=== PATIENT | male | born 1955 | race Two or more races ===

== ENCOUNTER 2023-03-18 08:05 | Emergency (ER) | payer OTHER ==
[~2023-03-18] VITALS: Ht 177.8 cm; Wt 100.9 kg
[2023-03-18 09:04] VITALS: BP 154/95; PULSE 70; RESP 16; TEMP 97.9; O2SAT 98
[2023-03-18] MEDS ORDERED: MELO-335 PO (10:32)
== END 2023-03-18 10:38 | disposition home or self-care (01) ==
LOC: ER 08:05
DX: M23.92 Unspecified internal derangement of left knee (principal); F17.210 Nicotine dependence, cigarettes, uncomplicated
CPT/HCPCS: 73562

== ENCOUNTER → 2023-03-25 | Outpatient (CLI) | payer OTHER ==
[~2023-03-25] MED LIST: MELO-335 PO
== END | disposition home or self-care (01) ==
LOC: LAB 10:22
PROVIDERS: ATTEND Family Medicine
DX: Z12.11 Encounter for screening for malignant neoplasm of colon (principal); Z12.5 Encounter for screening for malignant neoplasm of prostate; Z00.01 Encounter for general adult medical examination with abnormal findings; E55.9 Vitamin D deficiency, unspecified; R73.01 Impaired fasting glucose; R79.89 Other specified abnormal findings of blood chemistry; E78.2 Mixed hyperlipidemia; R73.03 Prediabetes; E78.5 Hyperlipidemia, unspecified; I10 Essential (primary) hypertension
CPT/HCPCS: 82270

== ENCOUNTER → 2023-12-12 | Outpatient (CLI) | payer OTHER ==
[~2023-12-12] MED LIST changes: -MELO-335 PO; +MELO15TA29 PO
[2023-12-12 07:38] LABS: Urine Bacteria None Seen /hpf (None Seen)
[2023-12-12 07:41] LABS: Basophils # (auto) 0.1 10 ^3/uL (0-0.2); Basophils % (auto) 1.1 % (0.0-2.0); Eosinophils # (auto) 0.3 10 ^3/uL (0-0.8); Eosinophils % (auto) 4.3 % (0.0-7.0); Hematocrit 46.5 % (41.0-53.0); Hemoglobin 15.2 g/dL (13.5-17.5); Lymphocytes # (auto) 2.3 10 ^3/uL (0.4-5.4); Lymphocytes % (auto) 33.5 % (10.0-50.0); Mean Corpuscular Hemoglobin 28.9 pg (28.0-32.0); Mean Corpuscular Hgb Conc. 32.8 g/dL (32.0-36.0); Mean Corpuscular Volume 88.2 fL (80.0-100.0); Monocytes # (auto) 0.6 10 ^3/uL (0-1.3); Monocytes % (auto) 8.6 % (0.0-12.0); Neutrophils # (auto) 3.6 10 ^3/uL (1.6-8.6); Neutrophils % (auto) 52.5 % (37.0-80.0); Red Blood Cells 5.28 10^6/uL (4.5-5.90); Red Cell Distribution Width 14.6 % (11.8-14.3); White Blood Cell 6.8 10^3/uL (4.4-10.8)
[2023-12-12 08:06] LABS: Urine Blood 1+ /uL (Negative); Urine Clarity Clear (Clear); Urine Color Light-Yellow (Yellow); Urine Mucus FEW (None Seen); Urine Protein, UAD Negative (Negative); Urine Specific Gravity 1.015 (1.001-1.035); Urine Urobilinogen Normal (Negative); Urine WBC 1 /hpf (0 - 3); Urine pH 5.5 (5.0-9.0)
[2023-12-12 08:16] LABS: Alanine Aminotransferase 47 U/L (7-40); Albumin 4.5 g/dL (3.2-4.8); Alkaline Phosphatase 70 U/L (46-116); Anion Gap 3 (5-15); Aspartate Aminotransferase 27 U/L (13-40); BUN/Creatinine Ratio 8.6 (10.0-20.0); Blood Urea Nitrogen 8 mg/dL (9-23); Calcium 9.6 mg/dL (8.5-10.1); Carbon Dioxide 30 mmol/L (20-30); Chloride 107 mmol/L (98-107); Cholesterol 145 mg/dL (< 200); Glucose 107 mg/dL (74-106); HDL Cholesterol 41 mg/dL (40-59); LDL Cholesterol 89 mg/dL (< 100); Potassium 4.9 mmol/L (3.5-5.1); Sodium 140 mmol/L (136-145); Triglycerides 138 mg/dL (< 150)
[2023-12-12 08:17] LABS: Bilirubin, Total 0.9 mg/dL (0.2-1.0)
== END | disposition home or self-care (01) ==
LOC: LAB 07:28
PROVIDERS: ATTEND Family Medicine
DX: R31.29 Other microscopic hematuria (principal); I10 Essential (primary) hypertension; Z79.899 Other long term (current) drug therapy
CPT/HCPCS: 36415; 80053; 80061; 81001; 82043; 83036; 84153; 84443; 85025

== ENCOUNTER 2023-12-21 08:04 | Emergency (ER) | payer OTHER ==
[~2023-12-21] VITALS: Ht 177.8 cm; Wt 100.0 kg
[2023-12-21 08:28] VITALS: BP 148/98; PULSE 98; RESP 18; TEMP 98.7; O2SAT 98
[2023-12-21] MEDS: HYDROcodone-ACET 10/325MG TAB PO ONE (08:54)
[2023-12-21] MEDS ORDERED: TRAM-626 PO (09:13)
[2023-12-21] MEDS ORDERED: PRED20TA2 PO (09:13)
== END 2023-12-21 09:21 | disposition home or self-care (01) ==
LOC: ER 08:04
DX: M51.16 Intervertebral disc disorders with radiculopathy, lumbar region (principal); G89.29 Other chronic pain; M54.59 Other low back pain; F17.210 Nicotine dependence, cigarettes, uncomplicated; Z79.52 Long term (current) use of systemic steroids; Z79.899 Other long term (current) drug therapy
CPT/HCPCS: 72100

== ENCOUNTER 2023-12-29 08:35 | Emergency (ER) | payer OTHER, MEDICAID ==
[~2023-12-29] VITALS: Ht 177.8 cm; Wt 77.2 kg
[~2023-12-29 08:35] MED LIST changes: +PRED20TA2 PO; +TRAM-626 PO
[2023-12-29] MEDS: KETOROLAC TROMETH 30 MG/ML 1ML VIAL IV ONE (09:16)
[2023-12-29] MEDS: LOSARTAN POTASSIUM 25 MG TAB PO ONE (09:16)
[2023-12-29] MEDS: methylPREDNISolone SOD SUCC 125 MG/2 ML VL IV ONE (09:16)
[2023-12-29 09:56] VITALS: PULSE 99; RESP 17; O2SAT 96
[2023-12-29] MEDS: MORPHINE SULFATE 4 MG/ML SYR/VIAL IV ONE (10:10)
[2023-12-29 11:38] VITALS: BP 162/99; PULSE 88; RESP 17; TEMP 98; O2SAT 99
[2023-12-29] MEDS ORDERED: MELO15TA29 PO (11:38)
[2023-12-29] MEDS ORDERED: HYDR-4902 PO (11:38)
== END 2023-12-29 12:34 | disposition home or self-care (01) ==
LOC: ER 08:35
DX: M51.36 Other intervertebral disc degeneration, lumbar region (principal); M48.07 Spinal stenosis, lumbosacral region; F17.210 Nicotine dependence, cigarettes, uncomplicated; I10 Essential (primary) hypertension
CPT/HCPCS: 72131; 96374; 96375; 99285; J1885; J2270; J2919